=== PATIENT | female | born 1975 | race Caucasian/White ===

== ENCOUNTER 2017-08-12 18:32 | Emergency (ER) | payer BC ==
[~2017-08-12] VITALS: Ht 160 cm; Wt 55.8 kg
[2017-08-12 18:37] VITALS: Ht 160 cm; Wt 55.8 kg
[2017-08-12 21:03] VITALS: BP 114/75
== END 2017-08-12 21:03 | disposition home or self-care (01) ==
LOC: ED 18:32
DX: R51 Headache (principal); Z86.79 Personal history of other diseases of the circulatory system
CPT/HCPCS: J1100; J1200; J2765; J3030; J7030

== ENCOUNTER 2017-08-13 21:46 | Emergency (ER) | payer BC ==
[~2017-08-13] VITALS: Ht 160 cm; Wt 55.8 kg
[2017-08-13 21:55] VITALS: Ht 160 cm; Wt 55.8 kg
[2017-08-13 22:33] VITALS: BP 131/78
== END 2017-08-13 22:33 | disposition home or self-care (01) ==
LOC: ED 21:46
DX: S13.4XXA Sprain of ligaments of cervical spine, initial encounter (principal); Z86.79 Personal history of other diseases of the circulatory system; X58.XXXA Exposure to other specified factors, initial encounter; Y93.89 Activity, other specified; Y92.89 Other specified places as the place of occurrence of the external cause; Y99.8 Other external cause status